=== PATIENT | male | born 1985 | race Hispanic/Latino ===

== ENCOUNTER 2020-04-09 03:17 | Inpatient (IN) | payer OTHER ==
[~2020-04-09] VITALS: Ht 167.6 cm; Wt 86.0 kg
[2020-04-09] MEDS ORDERED: ONDANSETRON HCL 4 MG/2 ML VIAL ONE (03:23)
[2020-04-09] MEDS ORDERED: TETANUS/DIPHTHERIA TOXOID [ADULT] 0.5 ML VIAL IM ONE (03:24)
[2020-04-09] MEDS ORDERED: MORPHINE SULFATE 4 MG/1ML SYG ONE (03:31)
[2020-04-09 03:56] LABS: BASOPHILS % (AUTO) 0.3 % (0.0-5.0); HEMATOCRIT 44.9 % (42-54); LYMPHOCYTES % (AUTO) 5.3 % (21.0-51.0); MEAN CORPUSCULAR HEMOGLOBIN 29.9 pg (27.0-33.0); MEAN CORPUSCULAR HGB CONC 35.2 g/dL (32.0-36.0); MONOCYTES % (AUTO) 5.8 % (3.0-13.0); NEUTROPHILS % (AUTO) 87.7 % (40.0-77.0); PLATELET COUNT (AUTO) 380 K/uL (130-400); RED BLOOD CELL COUNT(AUTO) 5.28 MIL/uL (4.50-6.20); RED CELL DISTRIBUTION WIDTH 12.2 % (11.0-15.5); WHITE BLOOD COUNT (AUTO) 28.8 K/uL (4.8-10.8)
[2020-04-09 04:05] LABS: CREATININE 1.4 mg/dL (0.5-1.5); POTASSIUM 3.1 mmol/L (3.5-5.1)
[2020-04-09 04:07] LABS: INR 0.95 (0.85-1.15); PARTIAL THROMBOPLASTIN TIME 25.1 SEC (26.3-35.5); PROTHROMBIN TIME 10.3 SEC (9.6-11.6)
[2020-04-09 04:27] LABS: ALBUMIN 4.4 g/dL (3.5-5.0); BILIRUBIN,TOTAL 0.5 mg/dL (0.2-1.0); TOTAL PROTEIN, SERUM 8.7 g/dL (6.0-8.3)
[2020-04-09] MEDS ORDERED: CEFTRIAXONE SODIUM 2 GM VIAL ONE (04:31)
[2020-04-09] MEDS ORDERED: AZITHROMYCIN 500MG+NS 250ML 250 ML IV ONE (04:31)
[2020-04-09] MEDS ORDERED: SODIUM CHLORIDE 0.9% 50 ML IV ONE (04:33)
[2020-04-09 04:41] LABS: AMPHET/METH SCREEN,URINE NEGATIVE (NEGATIVE); BARBITURATE SCREEN, URINE NEGATIVE (NEGATIVE); BENZODIAZEPINES SCREEN,URINE NEGATIVE (NEGATIVE); CANNABINOID SCREEN,URINE NEGATIVE (NEGATIVE); COCAINE SCREEN,URINE POSITIVE (NEGATIVE); OPIATE SCREEN,URINE NEGATIVE (NEGATIVE); PHENCYCLIDINE SCREEN,URINE NEGATIVE (NEGATIVE)
[2020-04-09 04:56] LABS: APPEARANCE,URINE Clear (CLEAR); BILIRUBIN,URINE Negative (NEGATIVE); COLOR,URINE Yellow (YELLOW); GLUCOSE, URINE (UA) Negative (NEGATIVE); KETONES,URINE Negative (NEGATIVE); LEUKOCYTE ESTERASE ,URINE Trace (NEGATIVE); NITRATE,URINE Negative (NEGATIVE); OCCULT BLOOD,URINE Large (NEGATIVE); PROTEIN,URINE POS 1+ mg/dL (NEGATIVE); UROBILINOGEN,URINE 0.2 mg/dL (0.2-1.0)
[2020-04-09 05:31] LABS: BACTERIA,URINE Rare /HPF (None Seen); MUCUS,URINE Few LPF (None Seen); RBC,URINE None Seen /HPF (0-1); SQUAMOUS EPITHELIAL CELL,UR None Seen /HPF (0-2); WBC,URINE 0-1 /HPF (0-1)
[2020-04-09 05:32] LABS: HYALINE CASTS, URINE 0-1 /LPF (0-1 /LPF)
[2020-04-09 05:50] LABS: ABG BASE EXCESS -9.6 mmol/L (-2.0-3.0); ABG HCO3 16.4 mmol/L (21.0-28.0); ABG OXYGEN SATURATION 96.3 % (95.0-99.0); ABG PCO2 36 mmHg (35-48)
[2020-04-09] MEDS ORDERED: GUAIFENESIN-DM 200/20 MG 10 ML PO PRN (06:00)
[2020-04-09] MEDS ORDERED: ACETAMINOPHEN 325 MG TAB PO PRN (06:00)
[2020-04-09] MEDS ORDERED: ONDANSETRON HCL 4 MG/2 ML VIAL IV PRN (06:00)
[2020-04-09] MEDS ORDERED: ERGOCALCIFEROL (VITAMIN D2) 50,000 UNIT CAPSULE PO SCH (06:00)
[2020-04-09] MEDS ORDERED: CEFTRIAXONE SODIUM 1 GM IVP SCH (06:00)
[2020-04-09] MEDS ORDERED: AZITHROMYCIN 500MG+NS 250ML 250 ML IV SCH (06:00)
[2020-04-09] MEDS ORDERED: SODIUM BICARB 50MEQ 50ML VIAL ONE (06:12)
[2020-04-09] MEDS: LACTATED RINGERS 1000ML 1,000 ML IV SCH ×3 (06:15→19:42)
[2020-04-09] MEDS ORDERED: IOHEXOL-350 75 ML VIAL IV ONE (06:36)
[2020-04-09] MEDS ORDERED: POTASSIUM CHLORIDE 20MEQ/100ML 100 ML IV PRN (08:45)
[2020-04-09] MEDS ORDERED: LIDOCAINE HCL-MPF 1% 2ML VIAL IV PRN (08:45)
[2020-04-09] MEDS ORDERED: POTASSIUM CHLORIDE 10% ELIXIR 20 MEQ/15 ML UDCUP PO PRN (08:45)
[2020-04-09] MEDS: FAMOTIDINE/PF 20 MG/2 ML VIAL IV SCH (09:00)
[2020-04-09] MEDS: ASCORBIC ACID 500 MG TAB PO SCH (09:00)
[2020-04-09] MEDS: ZINC SULFATE 220 CAPSULE PO SCH (09:00)
[2020-04-09] MEDS: ENOXAPARIN SODIUM 40 MG/0.4 ML SYRINGE SQ SCH (09:00)
[2020-04-09] MEDS: POTASSIUM CHLORIDE 20 MEQ ERTAB PO PRN ×4 (11:23→16:57)
[2020-04-09 12:43] VITALS: BP 113/73
--- NOTE | 2020-04-09 13:52 | NUR ---
DC PLAN CALLED NO ANSWER CHAZ WILL CONTINUE TO FOLLOW. Addendum: 04/09/20 at 1355 by THEE BRAGG RN CM Amended: Links added.
[2020-04-09 16:50] VITALS: BP 113/59
[2020-04-09] MEDS: ACETAMINOPHEN 325 MG TAB PO PRN (16:57)
[2020-04-09 20:00] VITALS: BP 114/58
[2020-04-10] VITALS: BP 104/51
[2020-04-10] MEDS ORDERED: CEFTRIAXONE SODIUM 1 GM IVP SCH
[2020-04-10] MEDS ORDERED: CEFTRIAXONE SODIUM 1 GM ONE (00:05)
[2020-04-10] MEDS: LACTATED RINGERS 1000ML 1,000 ML IV SCH (02:20)
[2020-04-10 04:00] VITALS: BP 104/52
[2020-04-10 04:06] LABS: BASOPHILS % (AUTO) 0.6 % (0.0-5.0); EOSINOPHILS % (AUTO) 1.5 % (0.0-8.0); LYMPHOCYTES % (AUTO) 28.3 % (21.0-51.0); MEAN CORPUSCULAR HEMOGLOBIN 29.9 pg (27.0-33.0); MEAN CORPUSCULAR HGB CONC 34.3 g/dL (32.0-36.0); MEAN CORPUSCULAR VOLUME 87.1 fL (79-99); MONOCYTES % (AUTO) 10.8 % (3.0-13.0); NEUTROPHILS % (AUTO) 58.4 % (40.0-77.0); PLATELET COUNT (AUTO) 289 K/uL (130-400); RED BLOOD CELL COUNT(AUTO) 4.25 MIL/uL (4.50-6.20); RED CELL DISTRIBUTION WIDTH 12.7 % (11.0-15.5)
[2020-04-10 04:39] LABS: BILIRUBIN,TOTAL 0.7 mg/dL (0.2-1.0); CREATININE 0.8 mg/dL (0.5-1.5); POTASSIUM 3.3 mmol/L (3.5-5.1); TOTAL PROTEIN, SERUM 6.3 g/dL (6.0-8.3)
[2020-04-10] MEDS ORDERED: POTASSIUM CHLORIDE 10% ELIXIR 20 MEQ/15 ML UDCUP PO PRN (05:45)
[2020-04-10] MEDS ORDERED: MAGNESIUM 2GM PREMIX 50ML 50 ML IV SCH (05:45)
[2020-04-10] MEDS ORDERED: POTASSIUM CHLORIDE 20 MEQ ERTAB PO PRN (05:45)
[2020-04-10] MEDS ORDERED: POTASSIUM CHLORIDE 20MEQ/100ML 100 ML IV PRN (05:45)
[2020-04-10] MEDS ORDERED: LIDOCAINE HCL-MPF 1% 2ML VIAL IJ PRN (05:45)
[2020-04-10] MEDS: POTASSIUM CHLORIDE 20 MEQ ERTAB PO PRN ×3 (06:15→07:12)
[2020-04-10] MEDS ORDERED: POTASSIUM CHLORIDE 20 MEQ ERTAB PO SCH (06:45)
--- NOTE | 2020-04-10 06:55 | NUR ---
HYPOKALEMIA PATIENT WITH K+ =3.3 MD NOTIFIED GAVE NEW ORDER 1) GIVE K+ 40 MEQ PO X 1 NOW. ALSO NOTIFIED OF NEGATIVE COVID PCR RESULTS. WILL VISIT TODAY.
[2020-04-10 08:00] VITALS: BP 140/80
[2020-04-10] MEDS: ENOXAPARIN SODIUM 40 MG/0.4 ML SYRINGE SQ SCH (10:04)
[2020-04-10] MEDS: ZINC SULFATE 220 CAPSULE PO SCH (10:04)
[2020-04-10] MEDS: FOLIC ACID 1 MG TABLET PO SCH (10:04)
[2020-04-10] MEDS: THIAMINE HCL 100 MG TABLET PO SCH (10:04)
[2020-04-10] MEDS: ASCORBIC ACID 500 MG TAB PO SCH (10:04)
[2020-04-10] MEDS: FAMOTIDINE/PF 20 MG/2 ML VIAL IV SCH (10:04)
[2020-04-10] MEDS: SODIUM CHLORIDE 0.9% 1000ML 1,000 ML IV SCH ×3 (10:42→23:28)
[2020-04-10 12:00] VITALS: BP 139/78
--- NOTE | 2020-04-10 12:39 | NUR ---
TONYA PLAN PATIENT IN [facility] DEPARTMENT. Addendum: 04/10/20 at 1240 by THEE BRAGG RN CM Amended: Links added.
[2020-04-10 14:57] LABS: MYOGLOBIN 114 ng/mL (10-92)
[2020-04-10 15:01] LABS: CREATINE KINASE, TOTAL 5879 U/L (21-232)
[2020-04-10 16:02] VITALS: BP 115/66
[2020-04-10 20:45] VITALS: BP 127/77
[2020-04-10 21:50] LABS: MYOGLOBIN 121 ng/mL (10-92)
[2020-04-10 22:02] LABS: CREATINE KINASE, TOTAL 4981 U/L (21-232)
[2020-04-11] VITALS (7 sets, daily range): BP systolic 105–130; BP diastolic 57–76
[2020-04-11 04:20] LABS: BASOPHILS % (AUTO) 0.5 % (0.0-5.0); EOSINOPHILS % (AUTO) 2.4 % (0.0-8.0); HEMATOCRIT 37.1 % (42-54); LYMPHOCYTES % (AUTO) 28.5 % (21.0-51.0); MEAN CORPUSCULAR HEMOGLOBIN 29.7 pg (27.0-33.0); MEAN CORPUSCULAR HGB CONC 34.2 g/dL (32.0-36.0); MEAN CORPUSCULAR VOLUME 86.9 fL (79-99); MONOCYTES % (AUTO) 10.1 % (3.0-13.0); PLATELET COUNT (AUTO) 294 K/uL (130-400); RED BLOOD CELL COUNT(AUTO) 4.27 MIL/uL (4.50-6.20); RED CELL DISTRIBUTION WIDTH 12.3 % (11.0-15.5); WHITE BLOOD COUNT (AUTO) 7.6 K/uL (4.8-10.8)
[2020-04-11 05:09] LABS: ALBUMIN 3.1 g/dL (3.5-5.0); BILIRUBIN,TOTAL 0.5 mg/dL (0.2-1.0); CREATININE 0.8 mg/dL (0.5-1.5); POTASSIUM 3.4 mmol/L (3.5-5.1); TOTAL PROTEIN, SERUM 6.6 g/dL (6.0-8.3)
[2020-04-11] MEDS: SODIUM CHLORIDE 0.9% 1000ML 1,000 ML IV SCH ×2 (05:45→22:36)
[2020-04-11] MEDS: THIAMINE HCL 100 MG TABLET PO SCH (09:57)
[2020-04-11] MEDS: FAMOTIDINE/PF 20 MG/2 ML VIAL IV SCH (09:57)
[2020-04-11] MEDS: ASCORBIC ACID 500 MG TAB PO SCH (09:57)
[2020-04-11] MEDS: ZINC SULFATE 220 CAPSULE PO SCH (09:57)
[2020-04-11] MEDS: FOLIC ACID 1 MG TABLET PO SCH (09:57)
[2020-04-11] MEDS: ENOXAPARIN SODIUM 40 MG/0.4 ML SYRINGE SQ SCH (09:58)
--- NOTE | 2020-04-11 15:08 | NUR ---
LT. MOURA FROM [place] [employer] CALLED REGARDING PATIENT STATUS. PER LT. MOURA, PATIENT TO BE DISCHARGED TO BROTHER'S CUSTODY ( ALAYNA MOYA AT [phone] ). PD WILL NOT TURN DOWN ATTENDANT PATIENT AFTER DISCHARGE. PLEASE NOTIFY LT. MOURA AT [phone] WHEN PATIENT HAS BEEN DISCHARGE.
[2020-04-11 15:12] LABS: MYOGLOBIN 225 ng/mL (10-92)
[2020-04-11 15:27] LABS: CREATINE KINASE, TOTAL 2948 U/L (21-232)
[2020-04-11 21:41] LABS: MYOGLOBIN 187 ng/mL (10-92)
[2020-04-11 21:48] LABS: CREATINE KINASE, TOTAL 2758 U/L (21-232)
[2020-04-12 03:28] VITALS: BP 107/63
[2020-04-12 03:43] LABS: BASOPHILS % (AUTO) 0.6 % (0.0-5.0); EOSINOPHILS % (AUTO) 2.7 % (0.0-8.0); HEMATOCRIT 38.2 % (42-54); LYMPHOCYTES % (AUTO) 24.7 % (21.0-51.0); MEAN CORPUSCULAR HEMOGLOBIN 29.8 pg (27.0-33.0); MEAN CORPUSCULAR HGB CONC 34.8 g/dL (32.0-36.0); MEAN CORPUSCULAR VOLUME 85.7 fL (79-99); MONOCYTES % (AUTO) 8.4 % (3.0-13.0); NEUTROPHILS % (AUTO) 63.1 % (40.0-77.0); PLATELET COUNT (AUTO) 339 K/uL (130-400); RED BLOOD CELL COUNT(AUTO) 4.46 MIL/uL (4.50-6.20); WHITE BLOOD COUNT (AUTO) 8.5 K/uL (4.8-10.8)
[2020-04-12 04:20] LABS: ALBUMIN 3.2 g/dL (3.5-5.0); BILIRUBIN,TOTAL 0.5 mg/dL (0.2-1.0); CREATININE 0.8 mg/dL (0.5-1.5); POTASSIUM 3.3 mmol/L (3.5-5.1); TOTAL PROTEIN, SERUM 6.9 g/dL (6.0-8.3)
[2020-04-12] MEDS: SODIUM CHLORIDE 0.9% 1000ML 1,000 ML IV SCH ×4 (05:27→22:06)
[2020-04-12 08:23] VITALS: BP 126/77
[2020-04-12] MEDS: FOLIC ACID 1 MG TABLET PO SCH (08:36)
[2020-04-12] MEDS: ASCORBIC ACID 500 MG TAB PO SCH (08:36)
[2020-04-12] MEDS: THIAMINE HCL 100 MG TABLET PO SCH (08:36)
[2020-04-12] MEDS: FAMOTIDINE/PF 20 MG/2 ML VIAL IV SCH (08:36)
[2020-04-12] MEDS: ZINC SULFATE 220 CAPSULE PO SCH (08:36)
[2020-04-12] MEDS: ENOXAPARIN SODIUM 40 MG/0.4 ML SYRINGE SQ SCH (08:37)
[2020-04-12 11:53] VITALS: BP 131/84
[2020-04-12 16:00] VITALS: BP 121/79
[2020-04-12 20:00] VITALS: BP 127/69
[2020-04-12 23:44] VITALS: BP 138/83
[2020-04-13 04:00] VITALS: BP 111/61
[2020-04-13] MEDS: SODIUM CHLORIDE 0.9% 1000ML 1,000 ML IV SCH ×4 (04:49→23:33)
[2020-04-13 08:09] VITALS: BP 123/80
--- NOTE | 2020-04-13 08:30 | NUR ---
DR GA called answering service spoke with Debbie states he will call back
[2020-04-13] MEDS: FOLIC ACID 1 MG TABLET PO SCH (09:39)
[2020-04-13] MEDS: FAMOTIDINE/PF 20 MG/2 ML VIAL IV SCH (09:39)
[2020-04-13] MEDS: ASCORBIC ACID 500 MG TAB PO SCH (09:40)
[2020-04-13] MEDS: ENOXAPARIN SODIUM 40 MG/0.4 ML SYRINGE SQ SCH (09:40)
[2020-04-13] MEDS: ZINC SULFATE 220 CAPSULE PO SCH (09:40)
[2020-04-13] MEDS: THIAMINE HCL 100 MG TABLET PO SCH (09:40)
[2020-04-13 12:28] VITALS: BP 139/81
--- NOTE | 2020-04-13 15:30 | NUR ---
Referral for: Family contact Contact information on facesheet; spouse Ondina Boyle [phone] verified by this worker. Contact information for Brother Charles Cornejo in nurses notes: [phone] verified by this worker. SW met with pt. who reports that he is feeling better and possible d/c late today or tomorrow. Pt. resides at home with spouse and their two children. 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 Pt. admits to using cocaine occasionally for approximately three months now and etoh for several years. Pt. reported that physicians have spoken with him at length about cessation of cocaine and etoh and states that he will not be using after this hospitalization which has enlightened him about risks. Pt. reports that his family is aware of his his hospitalization, however, that it is due to etoh; they are unaware of cocaine use. SW educated pt. on availability of substance disorder programs and provided pt. with information and pamphlet through [facility]. Pt. denied any history of depression or other mental illness. Pt. denied thoughts of harm to self or others. Pt. reports a strong support system among family and voiced that he feels remorseful for having used. Pt. stated that he is to report to PD post discharge for charges related to his arrest prior to admission. Pt.'s plans are to return home when medically cleared. Pt. provided with community resources and [employer] card for assistance with medications. Pt's brother to provide transportation home when medically cleared. Pt. voiced no other SS needs or concerns. Addendum: 04/13/20 at 1754 by HUDSON LÓPEZ SS Amended: Links added.
[2020-04-13 16:32] VITALS: BP 141/73
--- NOTE | 2020-04-13 17:15 | NUR ---
DR GALLEGOS texted Dr Gallegos states he was unaware of consult will see patient today
[2020-04-13 19:40] VITALS: BP 132/84
--- NOTE | 2020-04-13 23:33 | NUR ---
ROUNDS PATIENT RESTING IN BED AWAKE AND ALERT WATCHING TV. NO COMPLAINTS OF PAIN VOICED AT THIS TIME. VITALS STABLE. AFEBRILE. TOLERATING IVF WELL. NS INFUSING AT 150ML/HR. UP WITH MINIMAL ASSIST. HOB ELEVATED. NO SIGNS OF DISTRESS NOTED. CALL LIGHT WITHIN REACH. WILL CONTINUE TO BE OBSERVED. Addendum: 04/13/20 at 2336 by LUCIANA LÓPEZ RN RN Amended: Links added.
[2020-04-13 23:59] VITALS: BP 109/67
[2020-04-14 03:53] VITALS: BP 125/75
[2020-04-14] MEDS: SODIUM CHLORIDE 0.9% 1000ML 1,000 ML IV SCH ×3 (05:46→19:42)
[2020-04-14 08:02] VITALS: BP 114/90
--- NOTE | 2020-04-14 09:40 | NUR ---
DR GALLEGOS notified Dr Gallegos of pending consult for costochondroma states will see pt today
[2020-04-14 11:45] VITALS: BP 125/74
[2020-04-14] MEDS: FAMOTIDINE/PF 20 MG/2 ML VIAL IV SCH (12:46)
[2020-04-14] MEDS: FOLIC ACID 1 MG TABLET PO SCH (12:46)
[2020-04-14] MEDS: THIAMINE HCL 100 MG TABLET PO SCH (12:47)
[2020-04-14] MEDS: ASCORBIC ACID 500 MG TAB PO SCH (12:47)
[2020-04-14] MEDS: ZINC SULFATE 220 CAPSULE PO SCH (12:47)
[2020-04-14] MEDS: ENOXAPARIN SODIUM 40 MG/0.4 ML SYRINGE SQ SCH (12:48)
[2020-04-14 16:45] VITALS: BP 148/79
[2020-04-14 19:52] VITALS: BP 129/73
--- NOTE | 2020-04-14 20:00 | NUR ---
Rounds: AOX4. Fully awake and responsive. Denies feeling of pain. Per day shift report, needs cardiac clearance. Jeana Gay was paged and texted Day shift. Has not yet seen by export traffic department manager.
[2020-04-14 23:36] VITALS: BP 120/65
[2020-04-15] MEDS: SODIUM CHLORIDE 0.9% 1000ML 1,000 ML IV SCH ×4 (03:30→18:24)
[2020-04-15 04:01] VITALS: BP 106/49
[2020-04-15 06:10] LABS: BASOPHILS % (AUTO) 0.9 % (0.0-5.0); EOSINOPHILS % (AUTO) 5.5 % (0.0-8.0); HEMATOCRIT 40.8 % (42-54); LYMPHOCYTES % (AUTO) 28.5 % (21.0-51.0); MEAN CORPUSCULAR VOLUME 85.7 fL (79-99); MONOCYTES % (AUTO) 7.8 % (3.0-13.0); PLATELET COUNT (AUTO) 374 K/uL (130-400); RED BLOOD CELL COUNT(AUTO) 4.76 MIL/uL (4.50-6.20); RED CELL DISTRIBUTION WIDTH 11.9 % (11.0-15.5); WHITE BLOOD COUNT (AUTO) 8.6 K/uL (4.8-10.8)
[2020-04-15 06:23] LABS: POTASSIUM 3.7 mmol/L (3.5-5.1)
[2020-04-15 07:30] VITALS: BP 135/83
[2020-04-15] MEDS: ZINC SULFATE 220 CAPSULE PO SCH (08:42)
[2020-04-15] MEDS: ASCORBIC ACID 500 MG TAB PO SCH (08:42)
[2020-04-15] MEDS: THIAMINE HCL 100 MG TABLET PO SCH (08:42)
[2020-04-15] MEDS: FOLIC ACID 1 MG TABLET PO SCH (08:42)
[2020-04-15] MEDS: ENOXAPARIN SODIUM 40 MG/0.4 ML SYRINGE SQ SCH (08:43)
[2020-04-15] MEDS: FAMOTIDINE/PF 20 MG/2 ML VIAL IV SCH (08:43)
[2020-04-15 11:00] VITALS: BP 121/76
[2020-04-15] MEDS ORDERED: DEXAMETHASONE SOD PHOSPHATE 10MG/ML 1ML VIAL ONE (14:55)
[2020-04-15] MEDS ORDERED: EPHEDRINE SULFATE 50 MG/ML AMPULE ONE (15:01)
[2020-04-15 16:00] VITALS: BP 128/81
[2020-04-15 19:54] VITALS: BP 132/84
[2020-04-15 23:48] VITALS: BP 109/65
[2020-04-16 03:37] VITALS: BP 99/49
[2020-04-16] MEDS: SODIUM CHLORIDE 0.9% 1000ML 1,000 ML IV SCH ×2 (05:16→21:12)
[2020-04-16 05:48] LABS: EOSINOPHILS % (AUTO) 4.2 % (0.0-8.0); HEMATOCRIT 42.3 % (42-54); LYMPHOCYTES % (AUTO) 28.1 % (21.0-51.0); MEAN CORPUSCULAR HEMOGLOBIN 29.8 pg (27.0-33.0); MEAN CORPUSCULAR HGB CONC 34.5 g/dL (32.0-36.0); MEAN CORPUSCULAR VOLUME 86.3 fL (79-99); MONOCYTES % (AUTO) 7.3 % (3.0-13.0); NEUTROPHILS % (AUTO) 58.2 % (40.0-77.0); PLATELET COUNT (AUTO) 388 K/uL (130-400); RED CELL DISTRIBUTION WIDTH 12.2 % (11.0-15.5); WHITE BLOOD COUNT (AUTO) 9.4 K/uL (4.8-10.8)
[2020-04-16 06:23] LABS: ALBUMIN 3.4 g/dL (3.5-5.0); BILIRUBIN,TOTAL 0.3 mg/dL (0.2-1.0); CREATININE 0.8 mg/dL (0.5-1.5); POTASSIUM 3.8 mmol/L (3.5-5.1); TOTAL PROTEIN, SERUM 7.3 g/dL (6.0-8.3)
[2020-04-16 08:00] VITALS: BP 131/70
[2020-04-16] MEDS: ZINC SULFATE 220 CAPSULE PO SCH (09:35)
[2020-04-16] MEDS: THIAMINE HCL 100 MG TABLET PO SCH (09:35)
[2020-04-16] MEDS: ENOXAPARIN SODIUM 40 MG/0.4 ML SYRINGE SQ SCH (09:35)
[2020-04-16] MEDS: FOLIC ACID 1 MG TABLET PO SCH (09:35)
[2020-04-16] MEDS: ASCORBIC ACID 500 MG TAB PO SCH (09:35)
[2020-04-16] MEDS: FAMOTIDINE/PF 20 MG/2 ML VIAL IV SCH (09:35)
[2020-04-16 12:00] VITALS: BP 126/77
[2020-04-16 16:00] VITALS: BP 101/56
[2020-04-16 19:54] VITALS: BP 139/80
--- NOTE | 2020-04-16 20:07 | NUR ---
ADDENDUM PHYS. ASSESSMENT LUMP LOCATED DISTAL FEMUR LEFT BORDERING KNEE, SOFT , NON-INDURATED , NO PAIN TO PALPATION,HOWEVER PT STATES WALKS WITH SOME MILD PAIN WHEN AMBULATING OR PRESSURE APPLIED,NO REDNESS NO SKIN BREAK NOTED Addendum: 04/16/20 at 2259 by BHAVIN MCKEON RN RN Amended: Links added.
[2020-04-17] VITALS (23 sets, daily range): BP systolic 95–142; BP diastolic 55–92
[2020-04-17] MEDS: SODIUM CHLORIDE 0.9% 1000ML 1,000 ML IV SCH ×4 (00:18→18:06)
[2020-04-17 05:14] LABS: BASOPHILS % (AUTO) 0.8 % (0.0-5.0); EOSINOPHILS % (AUTO) 4.4 % (0.0-8.0); HEMATOCRIT 44.3 % (42-54); LYMPHOCYTES % (AUTO) 28.7 % (21.0-51.0); MEAN CORPUSCULAR HEMOGLOBIN 29.8 pg (27.0-33.0); MEAN CORPUSCULAR HGB CONC 34.3 g/dL (32.0-36.0); MEAN CORPUSCULAR VOLUME 86.9 fL (79-99); MONOCYTES % (AUTO) 7.5 % (3.0-13.0); NEUTROPHILS % (AUTO) 56.8 % (40.0-77.0); PLATELET COUNT (AUTO) 413 K/uL (130-400); RED CELL DISTRIBUTION WIDTH 12.3 % (11.0-15.5); WHITE BLOOD COUNT (AUTO) 9.7 K/uL (4.8-10.8)
[2020-04-17 05:27] LABS: INR 0.94 (0.85-1.15); PROTHROMBIN TIME 10.2 SEC (9.6-11.6)
[2020-04-17 05:44] LABS: ALBUMIN 3.5 g/dL (3.5-5.0); BILIRUBIN,TOTAL 0.4 mg/dL (0.2-1.0); TOTAL PROTEIN, SERUM 7.6 g/dL (6.0-8.3)
[2020-04-17] MEDS: ZINC SULFATE 220 CAPSULE PO SCH (09:00)
[2020-04-17] MEDS: FOLIC ACID 1 MG TABLET PO SCH (09:00)
[2020-04-17] MEDS: FAMOTIDINE/PF 20 MG/2 ML VIAL IV SCH (09:00)
[2020-04-17] MEDS: ASCORBIC ACID 500 MG TAB PO SCH (09:00)
[2020-04-17] MEDS: THIAMINE HCL 100 MG TABLET PO SCH (09:00)
[2020-04-17] MEDS ORDERED: NEOSTIGMINE 5MG/5ML SYR IV ONE ×2 (12:23→15:44)
[2020-04-17] MEDS ORDERED: SUCCINYLCHOLINE CHLORIDE 20 MG/ML 10 ML VIAL ONE (12:23)
[2020-04-17] MEDS ORDERED: DEXAMETHASONE SOD PHOSPHATE 10MG/ML 1ML VIAL ONE (12:23)
[2020-04-17] MEDS ORDERED: PROPOFOL 10 MG/ML 20ML VIAL IV ONE (12:23)
[2020-04-17] MEDS ORDERED: ONDANSETRON HCL 4 MG/2 ML VIAL ONE (12:23)
[2020-04-17] MEDS ORDERED: GLYCOPYRROLATE 1 MG/5 ML SYRINGE ONE ×2 (12:23→15:44)
[2020-04-17] MEDS ORDERED: LIDOCAINE PF 2% 5ML ABBOJECT ONE (12:23)
[2020-04-17] MEDS ORDERED: ROCURONIUM 10MG/1ML SYR 10 MG/ML ML ONE (12:24)
[2020-04-17] MEDS ORDERED: MIDAZOLAM HCL 1 MG/ML 2ML VIAL ONE (12:24)
[2020-04-17] MEDS ORDERED: FENTANYL CITRATE PF 50 MCG/1 ML 2ML VIAL ONE (12:24)
[2020-04-17] MEDS ORDERED: CEFAZOLIN SODIUM 1 GM VIAL ONE (15:03)
[2020-04-17] MEDS ORDERED: MEPERIDINE-PF 25 MG/ML SYG ONE ×2 (15:58→16:59)
[2020-04-17] MEDS ORDERED: KETOROLAC TROMETHAMINE 30MG/ML ONE ×2 (16:22→18:14)
--- NOTE | 2020-04-17 18:01 | NUR ---
PANKAJ MALDONADO. PATIENT IS IN PAIN. ONLY TYLENOL AVAILABLE.
--- NOTE | 2020-04-17 18:04 | NUR ---
PATIENT CAME BACK FROM SX. SNEHA DRAIN IN PLACE. PATIENT COMPLAINS OF NAUSEA. LEFT KNEE WRAPPED IN ZO WRAP.
[2020-04-18] MEDS: SODIUM CHLORIDE 0.9% 1000ML 1,000 ML IV SCH ×4 (00:47→23:16)
[2020-04-18 03:46] VITALS: BP 114/72
[2020-04-18 04:53] LABS: BASOPHILS % (AUTO) 0.3 % (0.0-5.0); EOSINOPHILS % (AUTO) 0.7 % (0.0-8.0); HEMATOCRIT 37.2 % (42-54); LYMPHOCYTES % (AUTO) 14.5 % (21.0-51.0); MEAN CORPUSCULAR HEMOGLOBIN 29.9 pg (27.0-33.0); MEAN CORPUSCULAR HGB CONC 34.7 g/dL (32.0-36.0); MEAN CORPUSCULAR VOLUME 86.3 fL (79-99); MONOCYTES % (AUTO) 7.4 % (3.0-13.0); NEUTROPHILS % (AUTO) 76.4 % (40.0-77.0); PLATELET COUNT (AUTO) 367 K/uL (130-400); RED BLOOD CELL COUNT(AUTO) 4.31 MIL/uL (4.50-6.20); RED CELL DISTRIBUTION WIDTH 12.2 % (11.0-15.5); WHITE BLOOD COUNT (AUTO) 12.3 K/uL (4.8-10.8)
[2020-04-18 05:17] LABS: ALBUMIN 3.2 g/dL (3.5-5.0); BILIRUBIN,TOTAL 0.5 mg/dL (0.2-1.0); CREATININE 0.9 mg/dL (0.5-1.5); POTASSIUM 3.7 mmol/L (3.5-5.1); TOTAL PROTEIN, SERUM 6.7 g/dL (6.0-8.3)
[2020-04-18] MEDS: KETOROLAC TROMETHAMINE 15MG/ML IV PRN ×2 (06:14→22:43)
[2020-04-18 07:59] VITALS: BP 120/65
[2020-04-18] MEDS: ASCORBIC ACID 500 MG TAB PO SCH (09:01)
[2020-04-18] MEDS: CEFTRIAXONE SODIUM 1 GM IV SCH (09:01)
[2020-04-18] MEDS: ACETAMINOPHEN 325 MG TAB PO PRN (09:01)
[2020-04-18] MEDS: ZINC SULFATE 220 CAPSULE PO SCH (09:01)
[2020-04-18] MEDS: FOLIC ACID 1 MG TABLET PO SCH (09:02)
[2020-04-18] MEDS: FAMOTIDINE/PF 20 MG/2 ML VIAL IV SCH (09:02)
[2020-04-18] MEDS: THIAMINE HCL 100 MG TABLET PO SCH (09:02)
[2020-04-18 11:44] VITALS: BP 119/67
[2020-04-18 16:00] VITALS: BP 125/66
[2020-04-18] MEDS: KETOROLAC TROMETHAMINE 30MG/ML IV PRN (17:34)
[2020-04-18 19:55] VITALS: BP 101/54
[2020-04-18 23:54] VITALS: BP 120/72
[2020-04-19 03:41] VITALS: BP 123/82
[2020-04-19] MEDS: KETOROLAC TROMETHAMINE 15MG/ML IV PRN (05:23)
[2020-04-19 06:02] LABS: BASOPHILS % (AUTO) 0.4 % (0.0-5.0); EOSINOPHILS % (AUTO) 1.2 % (0.0-8.0); HEMATOCRIT 36.4 % (42-54); LYMPHOCYTES % (AUTO) 19.5 % (21.0-51.0); MEAN CORPUSCULAR HEMOGLOBIN 29.5 pg (27.0-33.0); MEAN CORPUSCULAR HGB CONC 34.1 g/dL (32.0-36.0); MEAN CORPUSCULAR VOLUME 86.7 fL (79-99); NEUTROPHILS % (AUTO) 68.4 % (40.0-77.0); PLATELET COUNT (AUTO) 349 K/uL (130-400); RED CELL DISTRIBUTION WIDTH 12.2 % (11.0-15.5); WHITE BLOOD COUNT (AUTO) 11.3 K/uL (4.8-10.8)
[2020-04-19 06:36] LABS: ALBUMIN 3.2 g/dL (3.5-5.0); BILIRUBIN,TOTAL 0.5 mg/dL (0.2-1.0); CREATININE 0.8 mg/dL (0.5-1.5); POTASSIUM 3.7 mmol/L (3.5-5.1); TOTAL PROTEIN, SERUM 7.1 g/dL (6.0-8.3)
[2020-04-19 08:00] VITALS: BP 116/67
[2020-04-19] MEDS: CEFTRIAXONE SODIUM 1 GM IV SCH (08:49)
[2020-04-19] MEDS: ASCORBIC ACID 500 MG TAB PO SCH (08:50)
[2020-04-19] MEDS: THIAMINE HCL 100 MG TABLET PO SCH (08:50)
[2020-04-19] MEDS: ZINC SULFATE 220 CAPSULE PO SCH (08:50)
[2020-04-19] MEDS: FAMOTIDINE/PF 20 MG/2 ML VIAL IV SCH (08:50)
[2020-04-19] MEDS: SODIUM CHLORIDE 0.9% 1000ML 1,000 ML IV SCH ×2 (08:50→19:14)
[2020-04-19] MEDS: FOLIC ACID 1 MG TABLET PO SCH (08:50)
[2020-04-19] MEDS: KETOROLAC TROMETHAMINE 30MG/ML IV PRN (09:41)
[2020-04-19] MEDS ORDERED: HYDROCODONE/ACETAMINOPHEN 5/325 MG TAB PO PRN (09:45)
[2020-04-19 11:35] VITALS: BP 120/76
[2020-04-19 16:00] VITALS: BP 129/64
[2020-04-19 20:00] VITALS: BP 140/77
[2020-04-20] VITALS: BP 124/67
[2020-04-20 03:59] VITALS: BP 94/58
[2020-04-20 06:05] LABS: BASOPHILS % (AUTO) 0.5 % (0.0-5.0); EOSINOPHILS % (AUTO) 3.3 % (0.0-8.0); HEMATOCRIT 38.1 % (42-54); LYMPHOCYTES % (AUTO) 22.2 % (21.0-51.0); MEAN CORPUSCULAR HEMOGLOBIN 29.7 pg (27.0-33.0); MEAN CORPUSCULAR HGB CONC 33.9 g/dL (32.0-36.0); MEAN CORPUSCULAR VOLUME 87.8 fL (79-99); MONOCYTES % (AUTO) 9.9 % (3.0-13.0); NEUTROPHILS % (AUTO) 63.5 % (40.0-77.0); PLATELET COUNT (AUTO) 378 K/uL (130-400); RED BLOOD CELL COUNT(AUTO) 4.34 MIL/uL (4.50-6.20); RED CELL DISTRIBUTION WIDTH 12.1 % (11.0-15.5); WHITE BLOOD COUNT (AUTO) 11.3 K/uL (4.8-10.8)
[2020-04-20 06:31] LABS: CREATININE 0.9 mg/dL (0.5-1.5); POTASSIUM 3.8 mmol/L (3.5-5.1)
[2020-04-20 07:30] VITALS: BP 134/80
[2020-04-20] MEDS: FAMOTIDINE/PF 20 MG/2 ML VIAL IV SCH (08:07)
[2020-04-20] MEDS: CEFTRIAXONE SODIUM 1 GM IV SCH (08:08)
[2020-04-20] MEDS: THIAMINE HCL 100 MG TABLET PO SCH (08:08)
[2020-04-20] MEDS: ZINC SULFATE 220 CAPSULE PO SCH (08:08)
[2020-04-20] MEDS: ASCORBIC ACID 500 MG TAB PO SCH (08:08)
[2020-04-20] MEDS: FOLIC ACID 1 MG TABLET PO SCH (08:08)
[2020-04-20] MEDS: SODIUM CHLORIDE 0.9% 1000ML 1,000 ML IV SCH ×2 (08:34→21:31)
--- NOTE | 2020-04-20 10:02 | NUR ---
RDSCREEN - LOS X 11 Pt admitted with SIRS, Acute rhabdomyolysis, Alcohol and cocaine abuse. Pt is s/p procedure. Tolerating Regular diet order with no report of GI distress. Obesity Class I. Pt LBM 04/16/20; Recommend stool softener/laxative for possible constipation. Thiamine, Vitamin C, Zinc, Folic acid supplementation in place. History of COVID-19. Monitored labs: WBC 11.3, AST 38, ALT 85, TCK 324. RD to continue to monitor. Recommend continue Regular diet order. Please notify as nutrition concerns arise. Thank you.
[2020-04-20 11:00] VITALS: BP 113/70
[2020-04-20 16:00] VITALS: BP 132/72
[2020-04-20 20:13] VITALS: BP 123/77
[2020-04-21 00:16] VITALS: BP 109/64
[2020-04-21 04:15] VITALS: BP 103/52
[2020-04-21 04:25] LABS: BASOPHILS % (AUTO) 0.6 % (0.0-5.0); EOSINOPHILS % (AUTO) 3.1 % (0.0-8.0); LYMPHOCYTES % (AUTO) 20.1 % (21.0-51.0); MEAN CORPUSCULAR HEMOGLOBIN 29.6 pg (27.0-33.0); MEAN CORPUSCULAR HGB CONC 33.9 g/dL (32.0-36.0); MEAN CORPUSCULAR VOLUME 87.4 fL (79-99); MONOCYTES % (AUTO) 7.6 % (3.0-13.0); PLATELET COUNT (AUTO) 416 K/uL (130-400); RED BLOOD CELL COUNT(AUTO) 4.12 MIL/uL (4.50-6.20); RED CELL DISTRIBUTION WIDTH 11.9 % (11.0-15.5)
[2020-04-21 08:00] VITALS: BP 118/78
--- NOTE | 2020-04-21 08:00 | NUR ---
PT AAO X3 REVIEW PLAN OF CARE. DENIES ANY PAIN. PT HAS A ZO WRAP DRSG TO HIS LT KNEE AREA . DUE TO SURGERY PER CMS PRESENT TO HIS TOES . WITH GOOD CAPILLARIES REFILLS NOTED . CALL LIGHT IN REACH.
[2020-04-21] MEDS: ASCORBIC ACID 500 MG TAB PO SCH (08:25)
[2020-04-21] MEDS: FOLIC ACID 1 MG TABLET PO SCH (08:25)
[2020-04-21] MEDS: THIAMINE HCL 100 MG TABLET PO SCH (08:25)
[2020-04-21] MEDS: ZINC SULFATE 220 CAPSULE PO SCH (08:25)
[2020-04-21] MEDS: CEFTRIAXONE SODIUM 1 GM IV SCH (08:26)
[2020-04-21] MEDS: FAMOTIDINE/PF 20 MG/2 ML VIAL IV SCH (08:26)
[2020-04-21 12:00] VITALS: BP 124/75
--- NOTE | 2020-04-21 15:50 | NUR ---
CALLED TO THE [place] [employer]. PER STAFF . NEEDED TO SPEAK TO LIEUTENANT MOURA REGARDNG MATTER. AT PRESENT HIS IN NOT IN THE OFFICE,
[2020-04-21 16:00] VITALS: BP 131/75
[2020-04-21] MEDS: KETOROLAC TROMETHAMINE 30MG/ML IV PRN (17:42)
[2020-04-21] MEDS: SODIUM CHLORIDE 0.9% 1000ML 1,000 ML IV SCH (17:44)
--- NOTE | 2020-04-21 18:40 | NUR ---
CALLED [place] [employer] . SPOKE WITH LIEUTENANT MOURA . PER INFORMATION . PT IS GOING TO HAVE HIS BROTHER ALAYNA MOYA TO PICK HIM AFTER DISCHARGE , AND HAS ALREADY MADE ARRANGEMENT . THAT HIS BROTHER WILL BE PICKING HIM UP. AFTER DISCHARGE AND WILL GO TO THE DEPT . FOR FURTHER POLICE MATTERS .
[2020-04-21 20:09] VITALS: BP 114/73
[2020-04-22 00:23] VITALS: BP 105/57
[2020-04-22 03:57] VITALS: BP 107/63
[2020-04-22] MEDS: KETOROLAC TROMETHAMINE 30MG/ML IV PRN (04:49)
[2020-04-22 06:48] LABS: BASOPHILS % (AUTO) 0.6 % (0.0-5.0); EOSINOPHILS % (AUTO) 3.1 % (0.0-8.0); HEMATOCRIT 34.2 % (42-54); LYMPHOCYTES % (AUTO) 22.2 % (21.0-51.0); MEAN CORPUSCULAR HEMOGLOBIN 29.3 pg (27.0-33.0); MEAN CORPUSCULAR HGB CONC 33.6 g/dL (32.0-36.0); MEAN CORPUSCULAR VOLUME 87.2 fL (79-99); NEUTROPHILS % (AUTO) 65.4 % (40.0-77.0); PLATELET COUNT (AUTO) 440 K/uL (130-400); RED BLOOD CELL COUNT(AUTO) 3.92 MIL/uL (4.50-6.20); RED CELL DISTRIBUTION WIDTH 12.1 % (11.0-15.5); WHITE BLOOD COUNT (AUTO) 11.2 K/uL (4.8-10.8)
[2020-04-22 06:56] LABS: CREATININE 0.9 mg/dL (0.5-1.5); POTASSIUM 3.8 mmol/L (3.5-5.1)
[2020-04-22 07:30] VITALS: BP 112/66
[2020-04-22] MEDS: SODIUM CHLORIDE 0.9% 1000ML 1,000 ML IV SCH ×2 (07:50→14:32)
[2020-04-22] MEDS: ZINC SULFATE 220 CAPSULE PO SCH (08:17)
[2020-04-22] MEDS: THIAMINE HCL 100 MG TABLET PO SCH (08:17)
[2020-04-22] MEDS: FAMOTIDINE/PF 20 MG/2 ML VIAL IV SCH (08:17)
[2020-04-22] MEDS: CEFTRIAXONE SODIUM 1 GM IV SCH (08:17)
[2020-04-22] MEDS: FOLIC ACID 1 MG TABLET PO SCH (08:17)
[2020-04-22] MEDS: ASCORBIC ACID 500 MG TAB PO SCH (08:17)
[2020-04-22 11:00] VITALS: BP 124/54
[2020-04-22] MEDS ORDERED: FOLI1 PO (15:28)
[2020-04-22] MEDS ORDERED: THIA100T91 PO (15:28)
[2020-04-22] MEDS ORDERED: FLU VACC QS2020-21(6MOS UP)/PF 60 MCG/0.5 ML ML IM ONE (17:00)
--- NOTE | 2020-04-22 18:50 | NUR ---
D/C PT LEFT AAOX4 VS STABLE, DRESSING DRY AND INTACT, NO PAIN. PT LEFT VIA WHEEL CHAIR , WITH CRUTCHES, AND RX SCRIPT, PULSES PRESENT TO THE LEFT LOWER LEG, WITH NO COMPLICATIONS. PT WILL SEE F/U WIT IN 1-2 WEEKS. [facility] WAS CALLED AND MADE AWARE PATIENT WAS D/C AND THEY WILL F/U WITH PATIENT.
== END 2020-04-22 19:00 | disposition home or self-care (01) | DRG 498 ==
LOC: EDH 03:17 → EEVIPCON 03:18 → EDHIP 03:18 → 2AH 08:07 → 3BH 04-10 21:23
PROVIDERS: ADMIT Internal Medicine; ATTEND Internal Medicine
PROC: 3E0234Z Introduction of Serum, Toxoid and Vaccine into Muscle, Percutaneous Approach (ICD-10-PCS; 2020-04-09)
PROC: 0QBC0ZZ Excision of Left Lower Femur, Open Approach (ICD-10-PCS; principal; 2020-04-18)
PROC: 3E02340 Introduction of Influenza Vaccine into Muscle, Percutaneous Approach (ICD-10-PCS; 2020-04-22)
DX: D16.22 Benign neoplasm of long bones of left lower limb (principal); M62.82 Rhabdomyolysis; E87.1 Hypo-osmolality and hyponatremia; E87.2 Acidosis; E86.0 Dehydration; F14.10 Cocaine abuse, uncomplicated; E11.9 Type 2 diabetes mellitus without complications; F10.129 Alcohol abuse with intoxication, unspecified; Y90.6 Blood alcohol level of 120-199 mg/100 ml; E87.6 Hypokalemia; B96.89 Other specified bacterial agents as the cause of diseases classified elsewhere; D72.829 Elevated white blood cell count, unspecified; F17.200 Nicotine dependence, unspecified, uncomplicated; Z20.828 Contact with and (suspected) exposure to other viral communicable diseases; Y04.0XXA Assault by unarmed brawl or fight, initial encounter; W19.XXXA Unspecified fall, initial encounter; Y93.89 Activity, other specified; Y92.89 Other specified places as the place of occurrence of the external cause; Y99.8 Other external cause status; Z23 Encounter for immunization
CPT/HCPCS: 36415; 36600; 70450; 71045; 71275; 73552; 80048; 80053; 80305; 81001; 82550; 82728; 82803; 83036; 83605; 83735; 83874; 84145; 84484; 85025; 85378; 85610; 85730; 86900; 86901; 87040; 87077; 87088; 87186; 87426; 87486; 87581; 87633; 87798; 90714; 93005; 97039; A4606; G0378; J0330; J0456; J0690; J0696; J1100; J1650; J1885; J2001; J2175; J2250; J2270; J2405; J2704; J2710; J3010; J3490; J7030; J7120; Q2035; Q9967; U0003